=== PATIENT | female | born 1975 | race Caucasian/White ===

== ENCOUNTER 2017-01-12 09:57 | Emergency (ER) | payer OTHER ==
[2017-01-12 10:14] VITALS: BP 151/113
--- NOTE | 2017-01-12 10:44 | CT ---
Head CT Technique: Multiple axial sections through the brain were obtained. Intravenous contrast was not utilized. Comparison: Previous head CT of 01/20/12. Findings: Previous craniotomy noted on the left side. Large area of encephalomalacia is identified on the left side. Surgical clip is seen within the left temporal region causing artifact. Ex vacuole enlargement is seen of the left lateral ventricle. Ventricles otherwise are within normal limits. No evidence of acute hemorrhage. No other abnormal parenchymal densities are seen. No acute calvarial abnormality is identified. Impression: 1. Large area of encephalomalacia on the left side. This causes ex vacuole enlargement of the left lateral ventricle. 2. Previous left-sided craniotomy. 3. Surgical clip within the left temporal region causing artifact. 4. No acute intracranial abnormality is identified. No acute calvarial abnormality is appreciated. Diagnostic code #2 is
[2017-01-12] MEDS ORDERED: Sodium Chloride 0.9% 1,000 ML IV ONE (11:35)
[2017-01-12] MEDS ORDERED: Ketorolac 30 MG/ML SDV IVPUSH ONE (11:36)
[2017-01-12] MEDS ORDERED: Sodium Chloride 0.9% 10 ML Syringe FLUSH PRN (11:36)
[2017-01-12] MEDS ORDERED: diphenhydrAMINE 50 MG/ML SDV IVPUSH ONE (11:36)
[2017-01-12] MEDS ORDERED: Metoclopramide 10 MG/2 ML SDV IVPUSH ONE (11:36)
--- NOTE | 2017-01-12 11:49 | EDM.PDOC ---
ED HPI GENERAL MEDICAL PROBLEM - General Chief Complaint: Headache Stated Complaint: HEADACHE Time Seen by Provider: 01/12/17 11:17 Source of Information: Reports: Patient, Old Records History Limitations: Reports: No Limitations - History of Present Illness INITIAL COMMENTS - FREE TEXT/NARRATIVE: 41-year-old female presents for evaluation treatment of a headache. Patient reports that it has been going on for the last 2 days. She has a history of headaches and migraines. She states that this feels similar to previous headaches migraines. Patient had an hemorrhagic stroke 5 years ago. Since the stroke she has excessive aphasia and right-sided weakness. She is currently complaining of a constant headache. She has difficulty assigning a number on the pain scale. She denies any nausea, vomiting, blurry vision, double vision, fevers, cough, or seizures. Her last seizure was about 3 or 4 years ago. She is currently on Keppra for the seizures. She reports associated photophobia and phonophobia. She has tried [id number] Excedrin for migraines, little relief. Review the patient's charts show that she was seen in June for a headache. She was given Benadryl, Toradol, fluids, Reglan and Haldol and had good symptom relief. CT of the head was placed by nursing staff prior to my arrival in the ER. No acute changes seen on CT. 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: Neurological History: Reports: CVA, Headaches, Chronic, Migraines Other Neuro History: hemorrhagic - Past Surgical History Neurological Surgical History: Reports: Other (See Below) Social & Family History - Family History Family Medical History: Noncontributory Neurological: Reports: Cerebral Aneurysms - Tobacco Use Smoking Status *Q: Never Smoker Second Hand Smoke Exposure: No - Caffeine Use Caffeine Use: Reports: Coffee - Recreational Drug Use Recreational Drug Use: No ED ROS GENERAL - Review of Systems Review Of Systems: See Below Constitutional: Denies: Fever HEENT: Reports: Other (reports photophobia and phonophobia). Denies: Vision Change GI/Abdominal: Denies: Nausea, Vomiting Neurological: Reports: Headache. Denies: Seizure - Physical Exam Exam: See Below Exam Limited By: No Limitations General Appearance: Alert, WD/WN, No Apparent Distress Eye Exam: Bilateral Eye: EOMI, PERRL Ears: Normal External Exam Nose: Normal Inspection Throat/Mouth: Normal Inspection, Normal Lips, Normal Voice, No Airway Compromise Head Exam: Atraumatic, Normocephalic Neck: Normal Inspection Respiratory/Chest: No Respiratory Distress, Lungs Clear, Normal Breath Sounds Cardiovascular: Normal Peripheral Pulses, Regular Rate, Rhythm, No Murmur Neuro Exam (Abbreviated): Alert, Oriented, CN II-XII Intact, Normal Cognition, Slow to Respond (expressive aphasia; reportedly baseline for her), Other (log marker 4.5/5 right and 5/5 left; baseline decreased strength to the right) Psychiatric: Normal Affect, Normal Mood Skin Exam: Warm, Dry, Normal Color Course - Vital Signs Last Recorded V/S: Last Vital Signs Temp 36.9 C 01/12/17 10:07 Pulse 94 01/12/17 10:07 Resp 12 01/12/17 10:07 BP 151/113 H 01/12/17 10:07 Pulse Ox 100 01/12/17 10:07 - Orders/Labs/Meds Orders: Active Orders 24 hr Category Date Time Status Peripheral IV Care [RC] . DIRECTED Care 01/12/17 11:36 Active Peripheral IV Insertion Adult [OM.PC] Routine Oth 01/12/17 11:35 Ordered Meds: Medications Discontinued Medications Generic Name Dose Route Start Last Admin Trade Name Freq PRN Reason Stop Dose Admin Diphenhydramine HCl 50 mg 01/12/17 11:36 01/12/17 11:54 Benadryl IVPUSH 01/12/17 11:37 50 mg ONETIME ONE Administration Sodium Chloride 1,000 mls @ 999 mls/hr 01/12/17 11:35 01/12/17 11:50 Normal Saline IV 01/12/17 12:35 999 mls/hr ONETIME ONE Administration Ketorolac Tromethamine 30 mg 01/12/17 11:36 01/12/17 11:52 Toradol IVPUSH 01/12/17 11:37 30 mg ONETIME ONE Administration Metoclopramide HCl 5 mg 01/12/17 11:36 01/12/17 11:50 Reglan IVPUSH 01/12/17 11:37 5 mg ONETIME ONE Administration Sodium Chloride 10 ml 01/12/17 11:36 01/12/17 11:53 Saline Flush FLUSH 10 ml ASDIRECTED PRN Administration Keep Vein Open - Re-Assessments/Exams Free Text/Narrative Re-Assessment/Exam: 01/12/17 11:35 I reviewed the head CT results with the patient. 01/12/17 13:14 At this point the patient feels improved. She states that she would like to go home and does not feel she needs any further intervention for her headache. We will discharge her home at this time. Discharge instructions as document. Departure - Departure Time of Disposition: 13:30 Disposition: Home, Self-Care 01 Condition: Good Clinical Impression: Migraine - Discharge Information Instructions: Migraine Headache Referrals: Leeann Childs MD [Primary Care Provider] - Forms: ED Department Discharge Additional Instructions: Go home and rest in a dark quiet room. continue with your current plan of care. Follow up with your primary care provider as needed for additional headache management. Please return to the ER should your symptoms change or worsen. - My Orders Last 24 Hours: My Active Orders 01/12/17 11:35 Peripheral IV Insertion Adult [OM.PC] Routine 01/12/17 11:36 Peripheral IV Care [RC] . DIRECTED - Assessment/Plan Last 24 Hours: My Active Orders 01/12/17 11:35 Peripheral IV Insertion Adult [OM.PC] Routine 01/12/17 11:36 Peripheral IV Care [RC] . DIRECTED
== END 2017-01-12 13:18 | disposition home or self-care (01) ==
LOC: JD.ED 09:57
DX: G43.909 Migraine, unspecified, not intractable, without status migrainosus (principal); I10 Essential (primary) hypertension; Z88.0 Allergy status to penicillin; Z79.899 Other long term (current) drug therapy; Z86.73 Personal history of transient ischemic attack (TIA), and cerebral infarction without residual deficits
CPT/HCPCS: 70450; 96361; 96374; 96375; 99284; J1200; J1885; J2765; J7040; J7050

== ENCOUNTER 2017-09-05 20:04 | Emergency (ER) | payer OTHER ==
[2017-09-05] MEDS ORDERED: diphenhydrAMINE 50 MG/ML SDV IVPUSH ONE (20:33)
[2017-09-05] MEDS ORDERED: Ketorolac 30 MG/ML SDV IVPUSH ONE (20:33)
[2017-09-05] MEDS ORDERED: Metoclopramide 10 MG/2 ML SDV IVPUSH ONE (20:35)
--- NOTE | 2017-09-05 20:42 | EDM.PDOC ---
ED HPI GENERAL MEDICAL PROBLEM - General Chief Complaint: Headache Stated Complaint: HEADACHE Time Seen by Provider: 09/05/17 20:11 Source of Information: Reports: Patient, Family History Limitations: Reports: Other (Mild expressive aphasia due to a previous hemorrhagic stroke.) - History of Present Illness INITIAL COMMENTS - FREE TEXT/NARRATIVE: This is a 41-year-old female. She comes tonight because she's been having a right-sided headache this been creeping on her for the last couple of days. She has nausea but no vomiting. She has photophobia but no phonophobia. She denies any dizziness or vertigo. She's had no changes in her vision. She denies any recent illnesses no colds no cough no new medications. She was seen here in the ER in June 2016 in December 2016 with a very similar type headache. A CT scan was done in December 2016 that showed old changes but nothing new. She has had a left-sided craniotomy due to the hemorrhagic stroke. The patient indicates to me that this headache is similar to the other 2 headache she's had in the past. It should be noted that when she arrived to the ER for blood pressure was somewhat elevated and we will watch this. I believe it's related to her headache and once that seems to be under control if it continues to be elevated we'll provide some medication for it. 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 Headache Pain Score (Numeric/FACES): 9 - Related Data Allergies Allergy/AdvReac Type Severity Reaction Status Date / Time Penicillins Allergy Cannot Verified 01/12/17 10:14 Remember Home Meds: Home Meds Citalopram [Citalopram Hbr] 30 mg PO DAILY 10/07/13 [History] Metoprolol Tartrate 50 mg PO BID 10/07/13 [History] Lisinopril 0 mg PO DAILY 07/20/16 [History] levETIRAcetam [Keppra] 750 mg PO BID 07/20/16 [History] Acetaminophen/Butalbital/Caff [Fioricet 325-50-40 MG] 1 each PO Q6H PRN #10 tab 09/05/17 [Rx] Past Medical History HEENT History: Reports: Impaired Vision Other HEENT History: wears glasses 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: Neurological History: Reports: CVA, Headaches, Chronic, Migraines Other Neuro History: hemorrhagic - Past Surgical History Neurological Surgical History: Reports: Other (See Below) Social & Family History - Family History Family Medical History: Noncontributory Neurological: Reports: Cerebral Aneurysms - Tobacco Use Smoking Status *Q: Never Smoker Second Hand Smoke Exposure: No - Caffeine Use Caffeine Use: Reports: Coffee - Recreational Drug Use Recreational Drug Use: No ED ROS GENERAL - Review of Systems Review Of Systems: See Below Constitutional: Denies: Fever, Chills HEENT: Reports: Other (Mild photophobia) Respiratory: Reports: No Symptoms Cardiovascular: Reports: No Symptoms Endocrine: Reports: No Symptoms GI/Abdominal: Reports: Nausea. Denies: Abdominal Pain, Vomiting : Reports: No Symptoms Musculoskeletal: Reports: No Symptoms Skin: Reports: No Symptoms Neurological: Reports: Headache, Other (Patient has a long-term expressive aphasia though she is actually able to communicate well with yes and no questions). Denies: Dizziness, Syncope, Difficulty Walking Psychiatric: Reports: No Symptoms Hematologic/Lymphatic: Reports: No Symptoms - Physical Exam Exam: See Below Exam Limited By: Other (Expressive aphasia) General Appearance: Alert, WD/WN, No Apparent Distress Eye Exam: Bilateral Eye: Normal Inspection Ears: Normal External Exam, Normal Canal, Normal TMs Nose: Normal Inspection Throat/Mouth: Normal Inspection, Normal Lips, Normal Oropharynx, Normal Voice, No Airway Compromise Head Exam: Normocephalic Neck: Supple, Other (No nuchal rigidity) Respiratory/Chest: No Respiratory Distress, Lungs Clear, Normal Breath Sounds Cardiovascular: Regular Rate, Rhythm, No Murmur GI/Abdominal: Soft, Non-Tender Neuro Exam (Abbreviated): Alert, Oriented, Normal Cognition, No Motor/Sensory Deficits, Other (Patient seems to have minimal residual from her hemorrhagic stroke other than some expressive aphasia. Her physical status with arms and legs appears to be normal function) Back Exam: Full Range of Motion Extremities: Normal Inspection, Normal Range of Motion Psychiatric: Normal Affect, Normal Mood Skin Exam: Warm, Dry Course - Vital Signs Last Recorded V/S: Last Vital Signs Temp 97.0 F 09/05/17 20:10 Pulse 86 09/05/17 20:10 Resp 20 09/05/17 20:10 BP 179/106 H 09/05/17 22:13 Pulse Ox 96 09/05/17 20:10 - Orders/Labs/Meds Orders: Active Orders 24 hr Category Date Time Status Sodium Chloride 0.9% [Normal Saline] 1,000 ml Med 09/05/17 20:45 Active IV ASDIRECTED Medication Orders Sodium Chloride (Normal Saline) 1,000 mls @ 1,000 mls/hr IV ASDIRECTED TORI Last Admin: 09/05/17 20:56 Dose: 1,000 mls/hr Meds: Medications Generic Name Dose Route Start Last Admin Trade Name Freq PRN Reason Stop Dose Admin Sodium Chloride 1,000 mls @ 1,000 mls/hr 09/05/17 20:45 09/05/17 20:56 Normal Saline IV 1,000 mls/hr ASDIRECTED TORI Administration Discontinued Medications Generic Name Dose Route Start Last Admin Trade Name Freq PRN Reason Stop Dose Admin Clonidine HCl 0.1 mg 09/05/17 22:06 09/05/17 22:13 Catapres PO 09/05/17 22:07 0.1 mg ONETIME ONE Administration Diphenhydramine HCl 50 mg 09/05/17 20:33 09/05/17 20:53 Benadryl IVPUSH 09/05/17 20:34 50 mg ONETIME ONE Administration Haloperidol Lactate 5 mg 09/05/17 22:05 09/05/17 22:13 Haldol IVPUSH 09/05/17 22:06 5 mg ONETIME ONE Administration Ketorolac Tromethamine 30 mg 09/05/17 20:33 09/05/17 20:55 Toradol IVPUSH 09/05/17 20:34 30 mg ONETIME ONE Administration Metoclopramide HCl 5 mg 09/05/17 20:35 09/05/17 20:51 Reglan IVPUSH 09/05/17 20:36 5 mg ONETIME ONE Administration - Re-Assessments/Exams Free Text/Narrative Re-Assessment/Exam: 09/05/17 21:58 The fluids and the medication she is feeling markedly better. I gave her Benadryl 50 IV Toradol 30 IV Reglan 5 IV and she states her headache is markedly better and she wants to go home. I have encouraged her to sleep as much as possible tonight and tomorrow. And follow-up with her family doctor on Friday for recheck. 09/05/17 22:51 I noted that her blood pressure was elevated 179/104 so I held her here and gave her 5 of Haldol IV as well as 0.1 of clonidine. It could very well be explained to her that once her blood pressure goes up this might be the initial part of starting the headache and she needs to have her blood pressure checked by her family doctor. 09/05/17 23:04 Patient is insisting that she wants to leave. Her blood pressure is gotten down to 148/102. I spoke to both her about following up with her blood pressure checks and her family doctor and they understand. Departure - Departure Time of Disposition: 21:59 Disposition: Home, Self-Care 01 Condition: Good Clinical Impression: Elevated blood pressure reading Headache Qualifiers: Headache type: unspecified Headache chronicity pattern: acute headache Intractability: not intractable Qualified Code(s): R51 - Headache - Discharge Information Prescriptions: Acetaminophen/Butalbital/Caff [Fioricet 325-50-40 MG] 1 each PO Q6H PRN #10 tab PRN Reason: Headache Referrals: Leeann Childs MD [Primary Care Provider] - Forms: ED Department Discharge Additional Instructions: Rest and sleep as much as possible tonight and tomorrow, gentle activity tomorrow, drink lots of fluids, use the medicine as you need to for the headaches, be certain to follow-up with your family doctor this week to recheck your blood pressure and take your blood pressure medications faithfully, return to the ER if needed - My Orders Last 24 Hours: My Active Orders 09/05/17 20:45 Sodium Chloride 0.9% [Normal Saline] 1,000 ml IV ASDIRECTED - Assessment/Plan Last 24 Hours: My Active Orders 09/05/17 20:45 Sodium Chloride 0.9% [Normal Saline] 1,000 ml IV ASDIRECTED
[2017-09-05] MEDS ORDERED: Sodium Chloride 0.9% 1,000 ML IV SCH (20:45)
[2017-09-05] MEDS ORDERED: Haloperidol Lactate 5 MG/ML SDV IVPUSH ONE (22:05)
[2017-09-05] MEDS ORDERED: cloNIDine 0.1 MG Tab PO ONE (22:06)
[2017-09-05 22:15] VITALS: BP 179/106
== END 2017-09-05 23:10 | disposition home or self-care (01) ==
LOC: JD.ED 20:04
DX: R51 Headache (principal); I10 Essential (primary) hypertension; Z79.899 Other long term (current) drug therapy; Z88.0 Allergy status to penicillin
CPT/HCPCS: 96361; 96374; 96375; 99284; A9270; J1200; J1630; J1885; J2765; J7040

== ENCOUNTER 2017-12-16 16:16 | Emergency (ER) | payer OTHER ==
[2017-12-16] MEDS ORDERED: Ketorolac 30 MG/ML SDV IM ONE (17:30)
[2017-12-16] MEDS ORDERED: Haloperidol Lactate 5 MG/ML SDV IM ONE (17:30)
[2017-12-16] MEDS ORDERED: diphenhydrAMINE 50 MG/ML SDV IM ONE (17:30)
[2017-12-16] MEDS ORDERED: Ondansetron 4 MG Tab.DIS PO ONE (17:30)
--- NOTE | 2017-12-16 17:35 | EDM.PDOC ---
ED HPI GENERAL MEDICAL PROBLEM - General Chief Complaint: Headache Stated Complaint: MIGRAINE Time Seen by Provider: 12/16/17 17:10 Source of Information: Reports: Patient History Limitations: Reports: No Limitations, Other (expressive aphasia 2nd to previous hemorrhagic stroke (baselinefor patient) no new changes. ) - History of Present Illness INITIAL COMMENTS - FREE TEXT/NARRATIVE: Patient is a 42-year-old female with a history of hemorrhagic stroke and expressive aphasia who presents to the ED complaining of left-sided migraine headache that started yesterday. Headache is localized with photophobia and also hyperacusis. Throbbing sensation present not described as the worst headache of her life. Headache was gradual onset and has worsened since. She denies any vision changes, dizziness, fever, stiff neck, n/t, weakness, recent trauma, or any additional complaints. She recently had MRI of her brain with no concerning findings. This was performed in September. Otherwise last CT was obtained December 2016. All current symptoms are baseline for the patient. She denies being . Past medical history includes: Hemorrhagic stroke, migraine, hypertension Current medications include Keppra, metoprolol, lisinopril, citalopram, and Fioricet. Headache Pain Score (Numeric/FACES): 8 - Related Data Allergies Allergy/AdvReac Type Severity Reaction Status Date / Time Penicillins Allergy Cannot Verified 12/16/17 16:45 Remember Home Meds: Home Meds Citalopram [Citalopram Hbr] 30 mg PO DAILY 10/07/13 [History] Metoprolol Tartrate 50 mg PO BID 10/07/13 [History] Lisinopril 0 mg PO DAILY 07/20/16 [History] levETIRAcetam [Keppra] 750 mg PO BID 07/20/16 [History] Acetaminophen/Butalbital/Caff [Fioricet 325-50-40 MG] 1 each PO Q6H PRN #10 tab 09/05/17 [Rx] Past Medical History HEENT History: Reports: Impaired Vision Other HEENT History: wears glasses 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: Reports: Hypertension 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 - Physical Exam Exam: See Below Exam Limited By: No Limitations General Appearance: Alert, WD/WN, No Apparent Distress Eye Exam: Bilateral Eye: EOMI, Normal Inspection, Nystagmus (none noted), PERRL Ears: Hearing Grossly Normal Nose: Normal Inspection Throat/Mouth: Normal Inspection, Normal Oropharynx, Normal Voice, No Airway Compromise Head Exam: Atraumatic, Normocephalic Neck: Normal Inspection, Supple, Non-Tender, Full Range of Motion Respiratory/Chest: No Respiratory Distress, Lungs Clear, Normal Breath Sounds, Chest Non-Tender Cardiovascular: Normal Peripheral Pulses, Regular Rate, Rhythm, No Murmur Neuro Exam (Abbreviated): Alert, Oriented, CN II-XII Intact, Normal Cognition, Normal Gait, No Motor/Sensory Deficits, Other (No facial droop, slurred speech, tongue deviation, weakness discrepancy is to the upper and lower extremities, or sensory deficits noted. Cerebellar function intact including: Finger-nose, rapid alternating movements. Gait is normal. Expressive aphasia present.) Back Exam: Normal Inspection Extremities: Normal Inspection, Normal Range of Motion, Non-Tender Psychiatric: Normal Affect, Normal Mood Skin Exam: Warm, Dry, Intact, Normal Color Course - Vital Signs Last Recorded V/S: Last Vital Signs Temp 97.7 F 12/16/17 16:20 Pulse 97 12/16/17 18:45 Resp 16 12/16/17 18:45 BP 148/111 H 12/16/17 18:45 Pulse Ox 98 12/16/17 18:45 - Orders/Labs/Meds Meds: Medications Discontinued Medications Generic Name Dose Route Start Last Admin Trade Name Freq PRN Reason Stop Dose Admin Diphenhydramine HCl 50 mg 12/16/17 17:30 12/16/17 17:42 Benadryl IM 12/16/17 17:31 50 mg ONETIME ONE Administration Haloperidol Lactate 5 mg 12/16/17 17:30 12/16/17 17:40 Haldol IM 12/16/17 17:31 5 mg ONETIME ONE Administration Ketorolac Tromethamine 30 mg 12/16/17 17:30 12/16/17 17:43 Toradol IM 12/16/17 17:31 30 mg ONETIME ONE Administration Ondansetron HCl 4 mg 12/16/17 17:30 12/16/17 17:46 Zofran Odt PO 12/16/17 17:31 4 mg ONETIME ONE Administration - Re-Assessments/Exams Free Text/Narrative Re-Assessment/Exam: Patient received the Haldol 5 mg IM, Benadryl 50 mg IM, Toradol 30 mg IM, and Zofran 4 mg ODT. Upon administration patient requested to be discharged home prior to medications taking affect. Discharge instructions as documented. Departure - Departure Time of Disposition: 18:29 Disposition: Home, Self-Care 01 Condition: Good Clinical Impression: Migraine - Discharge Information Instructions: Migraine Headache, [id number] Referrals: Elsy Corrales MD [Primary Care Provider] - Forms: ED Department Discharge Additional Instructions: Suggest going home and finding a dark room to sleep in with no distractions. No driving this evening. Please return to the E.D. if you develop any new or worsening symptoms.
[2017-12-16 20:13] VITALS: BP 148/111
== END 2017-12-16 18:45 | disposition home or self-care (01) ==
LOC: JD.ED 16:16
DX: G43.909 Migraine, unspecified, not intractable, without status migrainosus (principal); I10 Essential (primary) hypertension; Z88.0 Allergy status to penicillin; Z79.899 Other long term (current) drug therapy
CPT/HCPCS: 96372; 99283; A9270; J1200; J1630; J1885

== ENCOUNTER 2021-07-20 14:23 | Emergency (ER) | payer MEDICARE, OTHER ==
[~2021-07-20 14:23] MED LIST: Tenecteplase 50 MG Kit ONE
[2021-07-20 14:39] VITALS: PULSE 95
[2021-07-20] MEDS ORDERED: Sodium Chloride 0.9% 10 ML Syringe FLUSH PRN (14:40)
[2021-07-20] MEDS ORDERED: Ondansetron 4 MG/2 ML SDV IVPUSH ONE (14:44)
[2021-07-20] MEDS ORDERED: Lactated Ringers 1,000 ML IV SCH (14:45)
[2021-07-20] MEDS ORDERED: Potassium Chloride 10 MEQ in Premix Bag 1 BAG IV ONE ×4 (16:11)
[2021-07-20] MEDS ORDERED: Metoclopramide 10 MG/2 ML SDV IVPUSH ONE (16:20)
[2021-07-20 17:38] VITALS: BP 115/85
== END 2021-07-20 16:55 ==
LOC: JD.ED 14:23
DX: U07.1 COVID-19 (principal); H55.00 Unspecified nystagmus; E87.6 Hypokalemia; R42 Dizziness and giddiness; I10 Essential (primary) hypertension; Z88.0 Allergy status to penicillin; Z79.899 Other long term (current) drug therapy
CPT/HCPCS: 36415; 70450; 80053; 83735; 84484; 85025; 85610; 85730; 93005; 96365; 96375; 99285; J2405; J2765; J3480; J7120; U0002

== ENCOUNTER 2025-03-19 20:05 | Emergency (ER) | payer MEDICARE, OTHER ==
[2025-03-19 20:21] VITALS: BP 153/95; PULSE 134
[2025-03-19 20:34] LABS: BASOPHILS ABSOLUTE AUTO 0.0 K/mm3 (0.0-0.2); BASOPHILS PERCENT AUTO 0.3 % (0.0-1.0); EOSINOPHILS ABSOLUTE AUTO 0.1 K/mm3 (0.0-0.4); EOSINOPHILS PERCENT AUTO 0.8 % (0.0-6.0); IMMATURE GRAN ABSOLUTE AUTO 0.05 K/mm3 (0.00-0.05); IMMATURE GRAN PERCENT AUTO 0.4 % (0.0-0.4); LYMPHOCYTES ABSOLUTE AUTO 2.2 K/mm3 (1.0-4.8); LYMPHOCYTES PERCENT AUTO 17.0 % (24.0-44.0); MEAN PLATELET VOLUME 9.2 fl (9.4-12.3); MONOCYTES ABSOLUTE AUTO 0.8 K/mm3 (0.0-0.8); MONOCYTES PERCENT AUTO 6.4 % (0.0-8.0); NEUTROPHILS ABSOLUTE AUTO 9.8 K/mm3 (1.8-7.7); NEUTROPHILS PERCENT AUTO 75.1 % (41.0-71.0); NRBC ABSOLUTE 0.00 (0.00-0.02); NRBC PERCENT 0.0 % (0.0-0.2); PLATELET COUNT,PLT 334 K/mm3 (150-400); RED BLOOD CELL COUNT 4.64 M/mm3 (4.10-5.30); WHITE BLOOD CELL COUNT,WBC 13.02 K/mm3 (3.9-11.3)
[2025-03-19] MEDS: Sodium Chloride 0.9% 10 ML Syringe FLUSH PRN ×2 (20:52→22:20)
[2025-03-19 21:12] LABS: A/G RATIO 0.9 (1-2); ALANINE AMINOTRANSFERASE,ALT 30.0 U/L (14-59); ASPARTATE AMNIOTRANSFERASE,AST 26.0 U/L (15-37); BILIRUBIN TOTAL 0.3 mg/dL (0.2-1.0); BLOOD UREA NITROGEN,BUN 11.0 mg/dL (7-18); CARBON DIOXIDE,CO2 21.0 mEq/L (21-32); CHLORIDE,CL 104.0 mEq/L (98-107); CREATININE 0.8 mg/dL (0.55-1.02); EST CRCL DRUG DOSING (CG) 80.51 mL/min; ESTIMATED GFR 91.0 mL/min (>60); GLUCOSE RANDOM 113.0 mg/dL (70-99); POTASSIUM,K 3.1 mEq/L (3.5-5.1); PROTEIN TOTAL,TP 7.8 g/dl (6.4-8.2); SODIUM,NA 138.0 mEq/L (136-145)
[2025-03-19] MEDS: Iopamidol 755 Mg/ML 100 ML Bottle IVPUSH ONE (22:20)
[2025-03-19] MEDS: Potassium Chloride 20 MEQ Tab.ER PO ONE (22:26)
[2025-03-19 22:56] LABS: TROPONIN I HIGH SENSITIVITY 10.0 pg/mL (<=51)
[2025-03-19 22:58] LABS: TSH 5.425 uIU/mL (0.358-3.74)
[2025-03-19 23:19] LABS: T4 FREE 1.43 ng/dL (0.76-1.46)
== END 2025-03-19 23:46 | disposition home or self-care (01) ==
LOC: JD.ED 20:05
DX: R07.89 Other chest pain (principal); I10 Essential (primary) hypertension; Z88.0 Allergy status to penicillin; Z79.899 Other long term (current) drug therapy; Z86.16 Personal history of COVID-19
CPT/HCPCS: 36415; 71045; 71275; 80053; 83690; 83735; 83880; 84439; 84443; 84484; 84703; 85025; 86140; 93005; 93246; 96360; 96361; 99285; A9270; J7030; Q9967